=== PATIENT | male | born 1960 | race Two or more races ===

== ENCOUNTER 2019-01-31 09:58 | Inpatient (IN) | payer SELFPAY ==
[~2019-01-31] VITALS: Ht 167.6 cm; Wt 131.7 kg
[2019-01-31] MEDS ORDERED: ONDANSETRON HCL 4 MG/2 ML VIAL ONE (10:34)
[2019-01-31] MEDS ORDERED: MORPHINE SULFATE 4 MG/ML SYR/VIAL ONE (10:34)
[2019-01-31 10:42] LABS: Basophils # (auto) 0 uL; Basophils % (auto) 0.3 % (0.0-2.0); Eosinophils # (auto) 0.3 uL; Eosinophils % (auto) 2.3 % (0.0-7.0); Hematocrit 44.2 % (41.0-53.0); Hemoglobin 14.5 g/dL (13.5-17.5); Lymphocytes # (auto) 3.8 uL; Lymphocytes % (auto) 28.3 % (10.0-50.0); Mean Corpuscular Hemoglobin 28.7 pg (28.0-32.0); Mean Corpuscular Hgb Conc. 32.9 g/dL (32.0-36.0); Mean Corpuscular Volume 87.1 fL (80.0-100.0); Monocytes % (auto) 7.9 % (0.0-12.0); Neutrophils # (auto) 8.2 uL; Neutrophils % (auto) 61.2 % (37.0-80.0); Nucleated Red Blood Cells % 0.1 %; Platelet Count (auto) 171 10^3/uL (140-450); Red Blood Cells 5.07 10^6/uL (4.5-5.90); Red Cell Distribution Width 14.5 % (11.8-14.3); White Blood Cell 13.4 10^3/uL (4.4-10.8)
[2019-01-31] MEDS ORDERED: FUROSEMIDE 40 MG/4 ML VIAL IV ONE (10:45)
[2019-01-31 10:59] LABS: INR 1.01 (0.9-1.15); Partial Thromboplastin Time 26.5 sec (23.64-32.05)
[2019-01-31] MEDS ORDERED: KETOROLAC TROMETH 15 mg/ml 1ML VL IV ONE (11:00)
[2019-01-31 11:05] LABS: Albumin 3.9 g/dL (3.4-5.0); Anion Gap 14 (5-15); Blood Urea Nitrogen 17 mg/dL (7-18); Carbon Dioxide 17 mmol/L (21-32); Chloride 107 mmol/L (98-107); Glucose 244 mg/dL (74-106); Potassium 3.6 mmol/L (3.5-5.1); Sodium 138 mmol/L (136-145)
[2019-01-31 11:10] LABS: Alanine Aminotransferase 48 U/L (16-61); Alkaline Phosphatase 86 U/L (45-117); Aspartate Aminotransferase 30 U/L (15-37); BUN/Creatinine Ratio 10.8; Bilirubin, Total 1.4 mg/dL (0.2-1.0); GFR African American 58 mL/min; GFR Non-African American 48 mL/min; Total Protein 8.9 g/dL (6.4-8.2)
[2019-01-31] MEDS ORDERED: LORazepam 2MG/ML-1ML VIAL IV ONE (11:45)
[2019-01-31] MEDS ORDERED: ACETYLCYSTEINE ORAL for CIN 20%(200MG/ML) 4ML PO ONE (11:45)
[2019-01-31] MEDS ORDERED: IOHEXOL 350 MG/ML 100ML IJ ONE (11:48)
[2019-01-31] MEDS ORDERED: HEPARIN DRIP/D5W 100UNITS/ML 250 ML IV SCH (12:30)
[2019-01-31] MEDS ORDERED: HYDROmorphone HCL 2 MG/ML VL ONE (12:40)
[2019-01-31] MEDS ORDERED: PROMETHAZINE HCL 25 MG/ML 1ML ONE (12:40)
[2019-01-31] MEDS ORDERED: HYDROmorphone HCL 2 MG/ML VL IV ONE (12:45)
[2019-01-31] MEDS ORDERED: PROMETHAZINE HCL 25 MG/ML 1ML IV ONE (12:45)
[2019-01-31] MEDS ORDERED: NALOXONE HCL 0.4 MG/ML VIAL ONE (13:00)
[2019-01-31] MEDS ORDERED: MORPHINE SULFATE 4 MG/ML SYR/VIAL IV PRN (13:15)
[2019-01-31] MEDS ORDERED: NALOXONE HCL 0.4 MG/ML VIAL IV ONE (13:15)
[2019-01-31] MEDS ORDERED: LORazepam 0.5 MG TAB PO PRN (13:15)
[2019-01-31] MEDS ORDERED: DEXTROSE (50%) 50ML SYRG IV PRN (13:15)
[2019-01-31] MEDS ORDERED: traMADol HCL 50 MG TAB PO PRN (13:15)
[2019-01-31] MEDS ORDERED: ALBUTEROL SULF 2.5 MG/0.5ML(0.5%) NEB SOLN NEB PRN (13:15)
[2019-01-31] MEDS ORDERED: NITROGLYCERIN 0.4 MG SL TAB SL PRN (13:15)
[2019-01-31] MEDS ORDERED: PROMETHAZINE HCL 25 MG/ML 1ML IV PRN (13:15)
[2019-01-31] MEDS ORDERED: ACETAMINOPHEN 500 MG TAB PO PRN (13:15)
[2019-01-31] MEDS ORDERED: MORPHINE SULF INJ 2 MG/ML SYRINGE 1ML IV PRN (13:15)
[2019-01-31] MEDS: HEPARIN DRIP/D5W 100UNITS/ML 250 ML IV SCH (13:59)
[2019-01-31] MEDS: SODIUM CHLORIDE 0.9% 1,000 ML IV SCH ×2 (14:06→23:26)
[2019-01-31] MEDS: InsuLIN REG 1unit/0.01ml Soln (100units/ml) SC SCH ×2 (16:00→20:00)
[2019-01-31] MEDS: ACCU-CHEK COMFORT CURVE STRIP VI SCH ×2 (16:58→20:00)
[2019-01-31 17:30] VITALS: BP 123/88
--- NOTE | 2019-01-31 18:00 | NUR ---
Received patient from ER. Patient A&Ox4. Patient on the monitor. VS WNL. Patient on 2L NC. IV right IJ triple lumen running NS at 100ml/hr and Heparin drip at 10ml/hr and left AC 20G saline locked, both IV's patent, clean, dry, and intact. Patient sitting up in bed and able to swallow. Admission packet done. Report to be given to mine shifter RN. Will continue to monitor.
--- NOTE | 2019-01-31 18:14 | NUR ---
Respiratory note: ASSESSMENT FOR PRN MED NEB TX. HE 96, SPO2 90% ON ROOM AIR, RR 16, BS DIMINISHED. PT PRESENTING NO RESPIRATORY DISTRESS AT THIS TIME. WILL CONTINUE TO MONITOR.
[2019-01-31 19:26] VITALS: BP 142/98
[2019-01-31 20:00] VITALS: BP 123/88
[2019-01-31 20:22] LABS: INR 1.06 (0.9-1.15); Partial Thromboplastin Time 37.7 sec (23.64-32.05)
--- NOTE | 2019-01-31 22:30 | NUR ---
Heparin adjusted to 1200units per protocol. PTT 37.7. Will continue to monitor. Pt resting at this time.
[2019-02-01] VITALS: BP 149/106
--- NOTE | 2019-02-01 02:12 | NUR ---
Lab at bedside for PTT draw. Central line access, pulls and flushes with ease. Pt alert and asking multiple questions about condition and procedures. Pt oriented. Denies pain at this time. States feels much better than when he came in and can move ankle whereas when he came in he had no movement. Pt had jello and seems in good spirits but seems anxious. Will continue to monitor.
[2019-02-01 02:53] LABS: INR 1.03 (0.9-1.15)
--- NOTE | 2019-02-01 03:39 | NUR ---
PTT 44.0, Heparin increased by 200units, now running at 1400 units. Pt resting with eyes closed, stable.
[2019-02-01] MEDS: InsuLIN REG 1unit/0.01ml Soln (100units/ml) SC SCH ×6 (04:00→20:00)
[2019-02-01] MEDS: ACCU-CHEK COMFORT CURVE STRIP VI SCH ×6 (05:36→20:00)
[2019-02-01 06:00] VITALS: BP 114/70
[2019-02-01 06:04] LABS: Basophils # (auto) 0 uL; Basophils % (auto) 0.3 % (0.0-2.0); Eosinophils # (auto) 0.2 uL; Eosinophils % (auto) 1.7 % (0.0-7.0); Hematocrit 42.1 % (41.0-53.0); Hemoglobin 13.9 g/dL (13.5-17.5); Lymphocytes # (auto) 2.7 uL; Lymphocytes % (auto) 29.7 % (10.0-50.0); Mean Corpuscular Hemoglobin 28.9 pg (28.0-32.0); Mean Corpuscular Volume 87.6 fL (80.0-100.0); Monocytes # (auto) 0.8 uL; Monocytes % (auto) 8.5 % (0.0-12.0); Neutrophils # (auto) 5.4 uL; Neutrophils % (auto) 59.8 % (37.0-80.0); Nucleated Red Blood Cells % 0.1 %; Platelet Count (auto) 125 10^3/uL (140-450); Red Blood Cells 4.81 10^6/uL (4.5-5.90); Red Cell Distribution Width 14.3 % (11.8-14.3)
[2019-02-01 06:18] LABS: Albumin 3.1 g/dL (3.4-5.0); Anion Gap 12 (5-15); Blood Urea Nitrogen 31 mg/dL (7-18); Calcium 7.9 mg/dL (8.5-10.1); Carbon Dioxide 22 mmol/L (21-32); Chloride 102 mmol/L (98-107); Glucose 129 mg/dL (74-106); Potassium 4.2 mmol/L (3.5-5.1); Sodium 136 mmol/L (136-145)
[2019-02-01 06:21] LABS: Alanine Aminotransferase 59 U/L (16-61); Aspartate Aminotransferase 179 U/L (15-37); GFR African American 33 mL/min; GFR Non-African American 27 mL/min
[2019-02-01 06:24] LABS: Alkaline Phosphatase 73 U/L (45-117); Total Protein 7.7 g/dL (6.4-8.2)
--- NOTE | 2019-02-01 06:27 | NUR ---
Respiratory note: PATIENT IS AWAKE AND IN NO RESPIRATORY DISTRESS. SPO2 97% ON 2L NC, HR72, RR 18, BS CLEAR T/O. PATIENT INFORMED TO HIT CALL BUTTON IF FEELING SOB OR WHEEZING. PRN MEDNEB TX NOT INDICATED AT THIS TIME.
[2019-02-01 06:41] LABS: Alcohol, Urine < 3.0 mg/dL (0-5); Amphetamine Screen, Urine NEGATIVE (NEGATIVE); Barbiturate Scree,Urine NEGATIVE (NEGATIVE); Benzodiazephine Screen, Urine NEGATIVE (NEGATIVE); Cannabinoid Screen, Urine NEGATIVE (NEGATIVE); Cocaine Screen, Urine NEGATIVE (NEGATIVE); Opiate Scree,Urine POSITIVE (NEGATIVE); Phencyclidine Screen, Urine NEGATIVE (NEGATIVE)
[2019-02-01 07:28] LABS: Urine Bacteria FEW /hpf (None Seen); Urine Blood 3+ /uL (Negative); Urine Hyaline Cast FEW /lpf (0 - 2); Urine Mucus FEW (None Seen); Urine WBC 31 /hpf (0 - 3)
[2019-02-01 08:00] VITALS: BP 118/68
--- NOTE | 2019-02-01 08:00 | NUR ---
Opening Shift Note Assumed care of patient, awake and alert. Patient A&Ox4. Patient on the monitor. Patient on 2L NC saturation at 95%. IV right IJ triple lumen running NS at 100ml/hr and Heparin at 14ml/hr, IV left AC 20G saline locked. Both IV's patent, clean, dry, and intact. No S/S of distress/SOB or pain. Bed locked and in the lowest position, side rails up x2, call light with in reach. Instructed on POC and to call for assist PRN. Will continue to monitor.
--- NOTE | 2019-02-01 08:15 | NUR ---
Heparin protocol: New APTT level 53.2 no change to drip, still running at 14ml/hr.
--- NOTE | 2019-02-01 08:45 | NUR ---
Patient sitting up in bed eating breakfast independently. Will continue to monitor.
[2019-02-01 09:04] LABS: INR 1.01 (0.9-1.15); Partial Thromboplastin Time 53.2 sec (23.64-32.05)
[2019-02-01] MEDS: SODIUM CHLORIDE 0.9% 1,000 ML IV SCH (09:21)
[2019-02-01] MEDS: HEPARIN DRIP/D5W 100UNITS/ML 250 ML IV SCH (09:22)
[2019-02-01] MEDS: PANTOPRAZOLE 40 MG TAB PO SCH (09:23)
--- NOTE | 2019-02-01 10:00 | NUR ---
Medication dosages, usages, and side effects explained to patient. Patient verbalized understanding. Will continue to monitor.
[2019-02-01 12:00] VITALS: BP 135/68
--- NOTE | 2019-02-01 12:30 | NUR ---
Patient sitting up in bed eating lunch independently. Will continue to monitor.
[2019-02-01] MEDS ORDERED: cefTRIAXone 1GM/50ML D5W 50 ML IV ONE (13:00)
--- NOTE | 2019-02-01 13:00 | NUR ---
Dr. Garcia at bedside.
--- NOTE | 2019-02-01 14:00 | NUR ---
Patient sitting up in bed watching TV. No S/S of pain/SOB or distress. Will continue to monitor.
--- NOTE | 2019-02-01 14:15 | NUR ---
Heparin protocol: New APTT level 54.5 no change to drip, still running at 14ml/hr.
--- NOTE | 2019-02-01 16:32 | NUR ---
Patient resting at this time. No S/S of pain/SOB or distress. Will continue to monitor.
--- NOTE | 2019-02-01 18:30 | NUR ---
End of shift note: Patient resting at this time. Patient A&Ox4. Patient on the monitor. Patient on 2L NC saturation at 96%. IV right IJ triple lumen running NS at 100ml/hr and Heparin at 14ml/hr, IV left AC 20G saline locked. Both IV's patent, clean, dry, and intact. No S/S of distress/SOB or pain. Bed locked and in the lowest position, side rails up x2, call light with in reach. Report to be given to operation shift supervisor RN. Will continue to monitor.
--- NOTE | 2019-02-01 18:42 | NUR ---
Respiratory note: ASSESSED PT FOR PRN TX. PT IS CURRENTLY ON 2 L/M NC: HR 76, RR 18, SPO2 96% WITH CLEAR/DIM BS. PT SHOWS NO S/S OF RESPIRATORY DISTRESS. MED NEB TX NOT INDICATED AT THIS TIME. WILL CONTINUE TO MONITOR.
--- NOTE | 2019-02-01 20:15 | NUR ---
Opening Shift Note Assumed care of patient, awake and alert. No S/S of distress/SOB on 2L NC. Denies pain but c/o lower extremity tightness. Bilateral lower extremities noted to be edematous, skin is tight and reddened ,warm to touch. Lungs clear to auscultation. Patient infusing heparin drip at 18ml/hr.See interventions for complete physical assessment. Patient made aware of tele downgrade and verbalized understanding.Instructed on POC and to call for assist PRN, will continue to monitor for changes closely. Addendum: 02/02/19 at 2121 by Keila Mosley RN correct date and time : 02/02/192014
--- NOTE | 2019-02-02 04:23 | NUR ---
Pt has remained stable this shift. No S/S of distress. Insulin held due to last night pt was 150's with no coverage and dropped into 120's. Continuing to monitor. Insulin held in case pt glucose drops too low. Will check 0400 accucheck to see if adjustment needs to be made. Educated pt on diet and taking better care of himself upon discharge. At this time his DM seems to be diet controlled. Pt's urine does look bat boy/girl and does not smell as strong. There have been 3 PTT draws in therapeutic range, now to be drawn daily. Pt is tolerating well. Will continue to monitor.
[2019-02-02] MEDS: HEPARIN DRIP/D5W 100UNITS/ML 250 ML IV SCH ×2 (04:39→20:46)
[2019-02-02] MEDS: InsuLIN REG 1unit/0.01ml Soln (100units/ml) SC SCH ×6 (07:00→23:24)
[2019-02-02] MEDS: ACCU-CHEK COMFORT CURVE STRIP VI SCH ×6 (07:00→23:24)
--- NOTE | 2019-02-02 07:25 | NUR ---
Respiratory note: PT. AWAKE, NO RESPIRATORY DISTRESS NOTED. SPO2 98%, HR 71, RR 20, BS CLEAR T/O. PRN NOT INDICATED AT THIS TIME. PT INFORMED TO PUSH CALL BUTTON IF SOB, INCREASED WOB, OR WHEEZING OCCURS. Addendum: 02/02/19 at 0755 by RT RENAE RT SPO2 98% ON 2 L NC
[2019-02-02 07:50] VITALS: BP 146/98
--- NOTE | 2019-02-02 07:50 | NUR ---
Opening Shift Note Assumed care of patient, awake and alert. No S/S of distress/SOB or pain. Instructed on POC and to call for assist PRN, will continue to monitor for changes Q1hr and PRN. Left leg more swollen than right, no complaining of pain, on heparin drip 1400 units/hr, no bleeding noted, will continue to monitor and care.
[2019-02-02] MEDS: cefTRIAXone 1GM/50ML D5W 50 ML IV SCH (08:27)
--- NOTE | 2019-02-02 08:45 | NUR ---
Patient sitting on the bed, having breakfast.
[2019-02-02] MEDS: PANTOPRAZOLE 40 MG TAB PO SCH (09:47)
[2019-02-02 09:55] LABS: INR 0.95 (0.9-1.15); Partial Thromboplastin Time 44.9 sec (23.64-32.05)
--- NOTE | 2019-02-02 10:30 | NUR ---
PTT 44.9, increase Heparin per protocol, Heparin 1600 unit/hr.
--- NOTE | 2019-02-02 10:45 | NUR ---
Dr. Garcia at the bedside, seen patient at this time, try Room air O2 saturation 95-96%, will continue to monitor and continue O2 NC 2 LPM at this time. Plan of care discussed with patient, received order to transfer to Tele. Patient made aware.
--- NOTE | 2019-02-02 11:14 | NUR ---
Per SS consult for limited resources. 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 Pt states he has two friends he stays with at times. Pt states he has a [place] ID and social security card in his bag and he has a w/c and cane in his car. Provided Pt with a variety of resources in the [place] area. Pt does not have insurance and Cam Tapia from [facility] will be seeing the Pt for Medical. Addendum: 02/02/19 at 1119 by RYAN FREEMAN Amended: Links added.
[2019-02-02 11:50] VITALS: BP 112/47
--- NOTE | 2019-02-02 13:57 | NUR ---
Patient sitting on the bed, watching TV, took off O2 NC off, refused to have O2 NC at this time, O2 saturation around 96-97%, will continue to monitor.
--- NOTE | 2019-02-02 14:50 | NUR ---
Patient okay with O2 NC at this time, continue O2 NC 2 LPM, O2 saturation 97-98%, no complaining SOB noted. still bed rest, called and talked to Dr. Garcia, received new orders, patient made aware.
[2019-02-02 16:00] VITALS: BP 123/72
--- NOTE | 2019-02-02 16:55 | NUR ---
Patient sitting on the bed, watching TV, patient made aware that still waiting for the bed. Will continue to monitor, plan check PTT at 5 pm.
[2019-02-02 17:59] LABS: INR 0.95 (0.9-1.15); Partial Thromboplastin Time 48.5 sec (23.64-32.05)
--- NOTE | 2019-02-02 18:09 | NUR ---
PTT 48.5, increased Heparin from 1600 units/hr to 1800 units/hr per protocol, will continue to monitor and care.
--- NOTE | 2019-02-02 18:33 | NUR ---
Dinner tray provided, patient sitting up on the bed. Vital sign stable, no complaining of SOB or bleeding noted.
[2019-02-02 19:49] VITALS: BP 138/72
--- NOTE | 2019-02-02 20:15 | NUR ---
Opening Shift Note Assumed care of patient, awake and alert. No S/S of distress/SOB on 2L NC. Denies pain but c/o lower extremity tightness. Bilateral lower extremities noted to be edematous, skin is tight and reddened ,warm to touch. Lungs clear to auscultation. Patient infusing heparin drip at 18ml/hr.See interventions for complete physical assessment. Patient made aware of tele downgrade and verbalized understanding.Instructed on POC and to call for assist PRN, will continue to monitor for changes closely.
--- NOTE | 2019-02-02 21:00 | NUR ---
PATIENT NOTED TO HAVE URINE INCONTINENCE. COMPLETE LINEN CHANGE DONE, PATIENT CLEANED. SKIN INTEGRITY ASSESSED, SACRUM INTACT. PATIENT TURNED AND REPOSITIONED IN BED FOR COMFORT.
--- NOTE | 2019-02-02 21:14 | NUR ---
CARE ENDORSED TO LAUREN LI
[2019-02-02] MEDS: DOCUSATE SOD 100 MG CAP PO SCH (21:30)
[2019-02-02 22:31] VITALS: BP 119/71
--- NOTE | 2019-02-02 22:31 | NUR ---
[facility] pt transferred to floor JULIO HODGE transfered to 208 via hospital bed on manager cardiac cath and portable 02. All patient medications and personal belongings transfered with patient to receiving floor. Patient care transfered to Eliane LI. NOTE: Fall and safety precautions in place. Call light within reach.
--- NOTE | 2019-02-02 23:00 | NUR ---
PT/PTT PTT lab draw was 60.4. Per Heparin protocol "no bolus, no change." Rate at 18ml/hr. Will continue to monitor
[2019-02-02 23:25] LABS: INR 0.94 (0.9-1.15); Partial Thromboplastin Time 60.4 sec (23.64-32.05)
[2019-02-03] VITALS (8 sets, daily range): BP systolic 91–157; BP diastolic 56–119
--- NOTE | 2019-02-03 00:50 | NUR ---
Respiratory note: PT SEEN AND ASSESSED FOR PRN MED NEB TX AT 0050. TX NOT INDICATED AT THIS TIME. PT DENIES ANY DISTRESS AT THIS TIME AND STATED THAT THIS IS THE BEST HE HAS BEEN BREATHING FOR A WHILE. BREATH SOUNDS WERE CLEAR AND DIMINISHED BILATERALLY. PT AWARE TO CALL FOR RT IF ANY DISTRESS OCCURS.
--- NOTE | 2019-02-03 05:00 | NUR ---
PT/PTT PTT drawn at this time and result was 64.1. Per Heparin protocol, "no bolus, no change." Heparin drip running at 18ml/hr. No distress noted. Will continue to monitor
[2019-02-03] MEDS: InsuLIN REG 1unit/0.01ml Soln (100units/ml) SC SCH ×4 (05:48→23:41)
[2019-02-03] MEDS: ACCU-CHEK COMFORT CURVE STRIP VI SCH ×4 (05:48→23:41)
--- NOTE | 2019-02-03 06:14 | NUR ---
Respiratory note: PT IS RESTING COMFORTABLY AND IN NO RESPIRATORY DISTRESS. SPO2 96% ON RA, HR 69, RR 16, BS CLEAR T/O. PRN MEDNEB TX NOT INDICATED AT THIS TIME. PT INFORMED IF SOB, INCREASED WOB, OR WHEEZING TO PUSH CALL BUTTON.
[2019-02-03 06:18] LABS: INR 0.95 (0.9-1.15); Partial Thromboplastin Time 64.1 sec (23.64-32.05)
--- NOTE | 2019-02-03 07:00 | NUR ---
CLOSING NOTE Endorsed care to Norris RN. Patient resting quietly in bed with eyes closed, even and nonlabored breathing. No distress noted.
--- NOTE | 2019-02-03 07:30 | NUR ---
OPENING NOTE The patient is received alert and oriented times four with no SOB or s/s of distress at this time. The patient is resting in bed in the lowest position with call light within reach, will continue to monitor and POC.
[2019-02-03] MEDS: cefTRIAXone 1GM/50ML D5W 50 ML IV SCH (09:01)
[2019-02-03] MEDS: DOCUSATE SOD 100 MG CAP PO SCH ×2 (09:01→21:14)
[2019-02-03] MEDS: PANTOPRAZOLE 40 MG TAB PO SCH (09:01)
--- NOTE | 2019-02-03 09:15 | NUR ---
HOSPITALIST BEDSIDE Dr. Garcia is bedside and updates the patient on the POC.
[2019-02-03 10:49] LABS: Albumin 3.1 g/dL (3.4-5.0); BUN/Creatinine Ratio 17.9; Potassium 3.6 mmol/L (3.5-5.1)
[2019-02-03 10:51] LABS: Basophils # (auto) 0 uL; Basophils % (auto) 0.4 % (0.0-2.0); Eosinophils # (auto) 0.3 uL; Eosinophils % (auto) 4.5 % (0.0-7.0); Hemoglobin 11.9 g/dL (13.5-17.5); Lymphocytes # (auto) 1.9 uL; Lymphocytes % (auto) 29.4 % (10.0-50.0); Mean Corpuscular Hemoglobin 28.5 pg (28.0-32.0); Mean Corpuscular Hgb Conc. 33.1 g/dL (32.0-36.0); Mean Corpuscular Volume 86.2 fL (80.0-100.0); Monocytes # (auto) 0.5 uL; Monocytes % (auto) 8.1 % (0.0-12.0); Neutrophils # (auto) 3.7 uL; Neutrophils % (auto) 57.6 % (37.0-80.0); Nucleated Red Blood Cells % 0.1 %; Platelet Count (auto) 136 10^3/uL (140-450); Red Blood Cells 4.17 10^6/uL (4.5-5.90); White Blood Cell 6.5 10^3/uL (4.4-10.8)
[2019-02-03 10:52] LABS: Bilirubin, Total 0.7 mg/dL (0.2-1.0); Total Protein 7.4 g/dL (6.4-8.2)
[2019-02-03 11:01] LABS: Calcium 8.3 mg/dL (8.5-10.1)
[2019-02-03] MEDS ORDERED: FUROSEMIDE 100 MG/10ML VIAL IV ONE (11:30)
[2019-02-03 11:45] LABS: INR 0.94 (0.9-1.15); Partial Thromboplastin Time 68.7 sec (23.64-32.05)
[2019-02-03] MEDS ORDERED: FUROSEMIDE 40 MG TAB PO ONE (12:00)
--- NOTE | 2019-02-03 12:30 | NUR ---
Rounds Patient awake and alert. No S/S of distress/SOB or pain. Will continue to monitor changes q1hr and PRN.
--- NOTE | 2019-02-03 12:36 | NUR ---
Nutrition Assessment Notes please see attached link for complete assessment Est. Needs ABW [id number] kcal (17-20 kcal/kgBW), 78-98 gms pro (0.8-1.0 gms/kgBW). Will continue to monitor pertinent labs and reassess nutrient need prn Addendum: 02/03/19 at [address] Amended: Links added.
[2019-02-03] MEDS ORDERED: OPTISON 3ml Vial for INJ IV ONE (16:09)
[2019-02-03 16:11] LABS: INR 0.93 (0.9-1.15); Partial Thromboplastin Time 63.8 sec (23.64-32.05)
[2019-02-03] MEDS ORDERED: WARFARIN SODIUM 10 MG TAB PO ONE (17:00)
--- NOTE | 2019-02-03 19:30 | NUR ---
Opening Shift Note Assumed care of patient, awake and alert. No S/S of distress/SOB or pain. Insructed on POC and to callfor assist PRN, will continue to monitor for changes Q1hr and PRN. Fall and safety precautions in place. Call light within reach.
--- NOTE | 2019-02-03 21:41 | NUR ---
TEMP Patient's temp at this time is 99.4 oral. Cooling measures applied and PRN medication given (see emar). Will recheck approximately 1hr.
--- NOTE | 2019-02-03 22:41 | NUR ---
TEMP Rechecked patient's temp; 98.4 oral. No distress noted. Will continue to monitor
--- NOTE | 2019-02-04 00:57 | NUR ---
Respiratory note: PT SEEN AND ASSESSED FOR PRN MED NEB TX AT 0057. TX NOT INDICATED AT THIS TIME. PT IS CURRENTLY SLEEPING SHOWING NO SIGNS OF RESPIRATORY DISTRESS. HR 77 RR 17 POX 93% ON ROOM AIR.
[2019-02-04] MEDS: HEPARIN DRIP/D5W 100UNITS/ML 250 ML IV SCH ×2 (01:59→15:09)
[2019-02-04 04:38] VITALS: BP 125/68
--- NOTE | 2019-02-04 05:00 | NUR ---
HEPARIN DRIP PTT drawn at this time; 63.4. Per Heparin drip protocol, "no bolus, no change." Heparin infusing at 18ml/hr. No distress noted. Will continue to monitor
[2019-02-04] MEDS: InsuLIN REG 1unit/0.01ml Soln (100units/ml) SC SCH ×3 (05:51→17:31)
[2019-02-04] MEDS: ACCU-CHEK COMFORT CURVE STRIP VI SCH ×4 (05:51→23:43)
[2019-02-04 06:08] LABS: Basophils # (auto) 0 uL; Basophils % (auto) 0.4 % (0.0-2.0); Eosinophils # (auto) 0.3 uL; Eosinophils % (auto) 4.8 % (0.0-7.0); Hematocrit 35.6 % (41.0-53.0); Hemoglobin 12.1 g/dL (13.5-17.5); Lymphocytes % (auto) 28.7 % (10.0-50.0); Mean Corpuscular Hemoglobin 29.3 pg (28.0-32.0); Mean Corpuscular Volume 86.4 fL (80.0-100.0); Monocytes # (auto) 0.6 uL; Monocytes % (auto) 8.6 % (0.0-12.0); Neutrophils % (auto) 57.5 % (37.0-80.0); Nucleated Red Blood Cells % 0.1 %; Platelet Count (auto) 156 10^3/uL (140-450); Red Blood Cells 4.12 10^6/uL (4.5-5.90); White Blood Cell 6.9 10^3/uL (4.4-10.8)
[2019-02-04 06:23] LABS: Anion Gap 12 (5-15); Calcium 8.2 mg/dL (8.5-10.1); Carbon Dioxide 26 mmol/L (21-32); Chloride 100 mmol/L (98-107); Glucose 127 mg/dL (74-106); Potassium 3.6 mmol/L (3.5-5.1); Sodium 138 mmol/L (136-145)
[2019-02-04 06:29] LABS: Blood Urea Nitrogen 17 mg/dL (7-18); GFR African American 85 mL/min; GFR Non-African American 70 mL/min
--- NOTE | 2019-02-04 07:30 | NUR ---
ASSESSED PT FOR MED NEB PRN TX. PT DENIES FEELING SOB AND NO DISTRESS NOTED. PT ON RA WITH SPO2 97%, HR 63, RR 16 WITH DIMINISHED BS. WILL CONTINUE TO MONITOR PT.
--- NOTE | 2019-02-04 07:30 | NUR ---
CLOSING NOTE Endorsed care to Antonia LI. Informed her Heparin drip infusing at 18ml/hr. Patient resting quietly in bed, eyes closed, even and nonlabored breathing.
--- NOTE | 2019-02-04 07:53 | NUR ---
OPENING SHIFT NOTE ASSUMED CARE OF PATIENT. PATIENT AWAKE AND ALERT SITTING UP IN BED. NO S/S OF DISTRESS OR SOB NOTED. REVIEWED POC AND INSTRUCTED TO CALL FOR ASSIST NEEDED. HEPARIN NOTED AT 18MLS PER HOUR. PATIENT AWARE OF S/S OF BLEEDING AND TO NOTIFY STAFF OF ANY S/S. BED IN LOWEST LOCKED POSITION, CALL LIGHT WITHIN REACH. WILL CONTINUE TO MONITOR.
[2019-02-04] MEDS ORDERED: FUROSEMIDE 20 MG TAB PO ONE (08:30)
[2019-02-04 08:47] VITALS: BP 138/71
--- NOTE | 2019-02-04 09:15 | NUR ---
AT BEDSIDE DR Chacho NIETO AT BEDSIDE AT THIS TIME. NEW ORDERS RECEIVED FOR COUMADIN. CONTINUING TO MONITOR.
[2019-02-04] MEDS: cefTRIAXone 1GM/50ML D5W 50 ML IV SCH (10:06)
[2019-02-04] MEDS: PANTOPRAZOLE 40 MG TAB PO SCH (10:06)
[2019-02-04] MEDS: DOCUSATE SOD 100 MG CAP PO SCH ×2 (10:06→21:39)
[2019-02-04 10:21] LABS: INR 0.96 (0.9-1.15)
[2019-02-04 13:00] VITALS: BP 128/72
--- NOTE | 2019-02-04 13:30 | NUR ---
BLOOD CULTURE RECEIVED FROM KATHY LI + BLOOD CULTURE NOTIFICATION CALLED FROM [facility]. WILL CALL MD TO NOTIFY.
--- NOTE | 2019-02-04 15:08 | NUR ---
ASSESSED PT FOR PRN MED NEB BREATHING TX, PT ON RA WITH A SPO2 97%, HR 63, RR 16. NO SOB NOTED NO RESPIRATORY DISTRESS NOTED. PT SAYS HE FEELS GOOD AND NO MED NEB TX NEEDED. WILL CONTINUE TO MONITOR.
--- NOTE | 2019-02-04 15:10 | NUR ---
HEPARIN HEPARIN DRIP ALMOST COMPLETELY EMPTY. NEW BAG RECEIVED FROM PHARMACY. WITH SECONDARY RN CO SIGNATURE NEW HEPARIN BAG STARTED AT 18MLS/HR OR 1800U/HR. PATIENT TOLERATING WELL, REINSTRUCTED PATIENT TO CALL WITH ANY S/S OF BLEEDING, PATIENT VERBALIZED UNDERSTANDING. PATIENT SHOWS NO S/S OF DISTRESS OR SOB NOTED. CALL LIGHT WITHIN REACH. CONTINUING TO MONITOR.
--- NOTE | 2019-02-04 15:59 | NUR ---
MD NOTIFIED MD NOTIFIED REGARDING REPORT FROM ECHOCARDIOGRAM TO BE READ BY DR LARIOS PER ELECTRICAL FOREMAN. ALSO NOTIFIED AT THIS TIME OF POSITIVE BLOOD CULTURE. NO NEW ORDERS RECEIVED AT THIS TIME. CONTINUING TO MONITOR.
[2019-02-04 17:00] VITALS: BP 129/77
[2019-02-04] MEDS ORDERED: WARFARIN SODIUM 5 MG TAB PO ONE (17:00)
[2019-02-04] MEDS ORDERED: WARFARIN SODIUM 10 MG TAB PO ONE (17:00)
--- NOTE | 2019-02-04 19:10 | NUR ---
opening notes Assumed care, awake and oriented with no signs of distress and no c/o pain. Right subclavian TLC infusing heparin drip @ 18ml/hr, respirations even and unlabored on room air, SPO2 97%, bilateral pitting edema note. Bed in lowest position with side rails up, bed alarm on and call light within reach. Will continue care.
--- NOTE | 2019-02-04 19:36 | NUR ---
END OF SHIFT NOTE PATIENT RESTING COMFORTABLY IN BED AT THIS TIME. NO S/S OF DISTRESS OR SOB NOTED. HEPARIN NOTED TO BE CONTINUED AT 18MLS OR 1800UNITS/HR. BED IN LOWEST LOCKED POSITION, CALL LIGHT WITHIN REACH. CARE ENDORSED TO GUILLERMO JETER.
--- NOTE | 2019-02-04 19:45 | NUR ---
RT NOTE: PT ASSESSED FOR PRN TX @ THIS TIME. PRN TX NOT INDICATED. HR 72, SPO2 95% ON ROOM AIR, DIMINISHED BS AUSCULTATED T/O. NO SOB OR DISTRESS NOTED. PT AWARE OF PRN BREATHING TX.
[2019-02-04 21:30] VITALS: BP 132/73
--- NOTE | 2019-02-04 23:00 | NUR ---
Elimination Had large amount of formed, brown stool in the commode, cleaned and assisted back to bed.
[2019-02-05] MEDS: HEPARIN DRIP/D5W 100UNITS/ML 250 ML IV SCH ×2 (02:58→17:55)
[2019-02-05 05:00] VITALS: BP 127/68
--- NOTE | 2019-02-05 05:00 | NUR ---
APTT 55.2, HEPARIN DRIP KEPT @ 18ML/HR PER PROTOCOL, NO CHANGES MADE WITH TITRATION.
[2019-02-05 05:27] LABS: Basophils # (auto) 0 uL; Basophils % (auto) 0.2 % (0.0-2.0); Eosinophils # (auto) 0.4 uL; Eosinophils % (auto) 4.6 % (0.0-7.0); Hematocrit 36.1 % (41.0-53.0); Lymphocytes # (auto) 1.8 uL; Lymphocytes % (auto) 23.3 % (10.0-50.0); Mean Corpuscular Hemoglobin 29.1 pg (28.0-32.0); Mean Corpuscular Hgb Conc. 33.3 g/dL (32.0-36.0); Mean Corpuscular Volume 87.4 fL (80.0-100.0); Monocytes # (auto) 0.6 uL; Monocytes % (auto) 8.4 % (0.0-12.0); Neutrophils # (auto) 4.9 uL; Neutrophils % (auto) 63.5 % (37.0-80.0); Nucleated Red Blood Cells % 0.1 %; Platelet Count (auto) 170 10^3/uL (140-450); Red Blood Cells 4.13 10^6/uL (4.5-5.90); Red Cell Distribution Width 14.3 % (11.8-14.3); White Blood Cell 7.7 10^3/uL (4.4-10.8)
[2019-02-05 05:49] LABS: Anion Gap 10 (5-15); BUN/Creatinine Ratio 14.7; Blood Urea Nitrogen 15 mg/dL (7-18); Calcium 8.5 mg/dL (8.5-10.1); Carbon Dioxide 26 mmol/L (21-32); Chloride 104 mmol/L (98-107); GFR African American 96 mL/min; GFR Non-African American 79 mL/min; Glucose 123 mg/dL (74-106); Sodium 140 mmol/L (136-145)
[2019-02-05 05:52] LABS: INR 1.07 (0.9-1.15); Partial Thromboplastin Time 55.2 sec (23.64-32.05)
[2019-02-05] MEDS: ACCU-CHEK COMFORT CURVE STRIP VI SCH ×3 (06:26→17:57)
[2019-02-05] MEDS: InsuLIN REG 1unit/0.01ml Soln (100units/ml) SC SCH ×4 (06:27→17:57)
--- NOTE | 2019-02-05 07:55 | NUR ---
OPENING SHIFT NOTE ASSUMED CARE OF PATIENT. PATIENT AWAKE AND ALERT SITTING UP IN BED. NO S/S OF DISTRESS OR SOB NOTED. REVIEWED POC WITH PATIENT AND INSTRUCTED TO CALL FOR ASSIST NEEDED. HEPARIN DRIP NOTED TO BE RUNNING AT 18MLS OR 1800U/HR. PATIENT TOLERATING WELL. BED IN LOWEST LOCKED POSITION, CALL LIGHT WITHIN REACH. WILL CONTINUE TO MONITOR.
[2019-02-05 08:53] VITALS: BP 143/84
[2019-02-05] MEDS: PANTOPRAZOLE 40 MG TAB PO SCH (10:43)
[2019-02-05] MEDS: DOCUSATE SOD 100 MG CAP PO SCH ×2 (10:44→21:41)
[2019-02-05] MEDS: cefTRIAXone 1GM/50ML D5W 50 ML IV SCH (10:45)
[2019-02-05 13:00] VITALS: BP 109/69
[2019-02-05] MEDS ORDERED: WARFARIN SODIUM 2 MG TAB PO ONE (17:00)
[2019-02-05 17:08] VITALS: BP 140/84
--- NOTE | 2019-02-05 18:49 | NUR ---
END OF SHIFT NOTE PATIENT AWAKE AND ALERT SITTING UP IN BED. NO S/S OF DISTRESS OR SOB NOTED. HEPARIN CURRENTLY RUNNING AT 18MLS/HR. BED IN LOWEST LOCKED POSITION, CALL LIGHT WITHIN REACH. WILL ENDORSE CARE TO NOC RN.
[2019-02-05 22:00] VITALS: BP 122/76
--- NOTE | 2019-02-05 22:16 | NUR ---
Respiratory note: ASSESSED PT FOR PRN MED NEB AT THIS TIME, PT DENIES SOB AT THIS TIME, NO RESP DISTRESS NOTED, NO TX INDICATED, PULSE OX 97% ON RA, HR 67, RR 18, BILATERAL BS CLEAR.
[2019-02-06] MEDS: ACCU-CHEK COMFORT CURVE STRIP VI SCH ×4 (00:02→18:00)
--- NOTE | 2019-02-06 00:03 | NUR ---
Pt just drank a cup of apple juice and ate a cup of Bj. Blood sugar at 133mg/dl. Pt refused coverage at this time.
[2019-02-06 01:09] VITALS: BP 122/76
[2019-02-06 05:00] VITALS: BP 127/82
[2019-02-06 05:35] LABS: Basophils # (auto) 0 uL; Basophils % (auto) 0.3 % (0.0-2.0); Eosinophils # (auto) 0.4 uL; Eosinophils % (auto) 5.8 % (0.0-7.0); Hematocrit 36.2 % (41.0-53.0); Hemoglobin 12.4 g/dL (13.5-17.5); Lymphocytes # (auto) 1.9 uL; Lymphocytes % (auto) 26.6 % (10.0-50.0); Mean Corpuscular Hemoglobin 29.7 pg (28.0-32.0); Mean Corpuscular Hgb Conc. 34.2 g/dL (32.0-36.0); Mean Corpuscular Volume 86.7 fL (80.0-100.0); Monocytes # (auto) 0.6 uL; Neutrophils # (auto) 4.2 uL; Neutrophils % (auto) 58.3 % (37.0-80.0); Nucleated Red Blood Cells % 0.1 %; Platelet Count (auto) 189 10^3/uL (140-450); Red Blood Cells 4.18 10^6/uL (4.5-5.90); Red Cell Distribution Width 13.9 % (11.8-14.3); White Blood Cell 7.2 10^3/uL (4.4-10.8)
[2019-02-06 05:41] LABS: Anion Gap 7 (5-15); BUN/Creatinine Ratio 13.5; Blood Urea Nitrogen 14 mg/dL (7-18); Calcium 8.7 mg/dL (8.5-10.1); Carbon Dioxide 28 mmol/L (21-32); Chloride 106 mmol/L (98-107); GFR African American 94 mL/min; GFR Non-African American 77 mL/min; Glucose 121 mg/dL (74-106); Potassium 4.2 mmol/L (3.5-5.1); Sodium 141 mmol/L (136-145)
[2019-02-06 05:48] LABS: INR 1.32 (0.9-1.15); Partial Thromboplastin Time 69.3 sec (23.64-32.05)
[2019-02-06] MEDS: InsuLIN REG 1unit/0.01ml Soln (100units/ml) SC SCH ×4 (06:00→18:00)
--- NOTE | 2019-02-06 07:30 | NUR ---
Opening Shift Note Assuming care of patient at this time. Patient is awake and alert. Bed is locked and lowered with side rails up x2. Patient denies pain and shows no signs of shortness of breath. Instructed patient on the plan of care and to call for assistance as needed. Call light within reach. Will continue to round hourly and as needed.
[2019-02-06] MEDS ORDERED: FUROSEMIDE 20 MG TAB PO ONE (08:15)
[2019-02-06] MEDS: HEPARIN DRIP/D5W 100UNITS/ML 250 ML IV SCH (08:28)
--- NOTE | 2019-02-06 08:45 | NUR ---
Respiratory note: PT ASSESSED FOR PRN MED NEB TX. TX IS NOT INDICATED AT THIS TIME. POX 95% ON RA, HR 65, RR 12. B/S ARE CLEAR THROUGHOUT. PT IS AWARE TO PRESS THE CALL LIGHT IF HE FEELS ANY SOB TO RECEIVE A MED NEB TX.
[2019-02-06 09:00] VITALS: BP 130/82
[2019-02-06] MEDS: DOCUSATE SOD 100 MG CAP PO SCH (10:41)
[2019-02-06] MEDS: PANTOPRAZOLE 40 MG TAB PO SCH (10:42)
[2019-02-06] MEDS: cefTRIAXone 1GM/50ML D5W 50 ML IV SCH (10:43)
[2019-02-06 11:12] VITALS: BP 130/82
[2019-02-06 13:14] VITALS: BP 147/88
--- NOTE | 2019-02-06 16:00 | NUR ---
Discharge instructions given as ordered. Encourage to follow up with PMD as instructed. All questions and concerns addressed. Patient verbalized understanding. IV removed with catheter intact, pressure dressing applied. Telemetry unit returned to [facility]. Patient taken to vehicle via wheelchair with all personal belongings, accompanied by staff. [facility]. No distress noted at time of departure. Patient given information to coumadin clinic.
[2019-02-06] MEDS ORDERED: WARFARIN SODIUM 2.5 MG TAB PO ONE (17:00)
--- NOTE | 2019-02-06 17:47 | NUR ---
Respiratory note: PT IN NO NEED OF SVN AT THIS TIME. PT IS IN NO DISTRESS. BREATH SOUNDS ARE CLEAR TO DIM BILATERALLY. PT KNOWS TO CALL NURSE IF SOB OCCURS.
[2019-02-07] MEDS ORDERED: WARF6TAB21 PO (18:43)
[2019-02-07] MEDS ORDERED: LISI-646 PO (18:43)
[2019-02-07] MEDS ORDERED: METF-371 PO (18:43)
[2019-02-07] MEDS ORDERED: FURO20TA PO (18:43)
[2019-02-09] MEDS ORDERED: MORPHINE SULFATE 4 MG/ML SYR/VIAL IV ONE (12:00)
== END 2019-02-06 16:00 | disposition home or self-care (01) | DRG 871 ==
LOC: ER 09:58 → OVERFLOW 09:59 → DOU IN ICU 18:03 → TELE-CENTR 02-02 22:26
PROVIDERS: ADMIT Internal Medicine; ATTEND Family Medicine
PROC: 02HV33Z Insertion of Infusion Device into Superior Vena Cava, Percutaneous Approach (ICD-10-PCS; principal; 2019-01-31)
DX: A41.9 Sepsis, unspecified organism (principal); I26.99 Other pulmonary embolism without acute cor pulmonale; N17.9 Acute kidney failure, unspecified; N39.0 Urinary tract infection, site not specified; I82.403 Acute embolism and thrombosis of unspecified deep veins of lower extremity, bilateral; Z68.42 Body mass index [BMI] 45.0-49.9, adult; F12.90 Cannabis use, unspecified, uncomplicated; E66.01 Morbid (severe) obesity due to excess calories; D72.829 Elevated white blood cell count, unspecified; E11.65 Type 2 diabetes mellitus with hyperglycemia; R80.9 Proteinuria, unspecified; I50.9 Heart failure, unspecified; E86.0 Dehydration; F19.10 Other psychoactive substance abuse, uncomplicated; Z79.01 Long term (current) use of anticoagulants; Z82.49 Family history of ischemic heart disease and other diseases of the circulatory system; Z86.711 Personal history of pulmonary embolism
CPT/HCPCS: 36415; 71045; 71275; 76775; 80048; 80053; 80307; 81001; 81241; 82962; 83036; 83880; 84484; 85025; 85302; 85305; 85306; 85610; 85613; 85670; 85705; 85730; 85732; 87040; 87076; 87086; 93005; 93306; 93970; G0378; J0696; J1642; J1815; J2405; Q9956

== ENCOUNTER 2019-04-15 08:19 | Inpatient (IN) | payer MEDICAID ==
[~2019-04-15] VITALS: Ht 172.7 cm; Wt 112.7 kg
[~2019-04-15 08:19] MED LIST: FURO1TAB33 PO; LISI-646 PO; METF-371 PO; POTA-220 PO; WARF6TAB21 PO
[2019-04-15 09:02] LABS: Basophils # (auto) 0 uL; Basophils % (auto) 0.9 % (0.0-2.0); Eosinophils # (auto) 0.3 uL; Eosinophils % (auto) 5.8 % (0.0-7.0); Hematocrit 39.7 % (41.0-53.0); Hemoglobin 13.1 g/dL (13.5-17.5); Lymphocytes # (auto) 1.3 uL; Mean Corpuscular Hemoglobin 28.6 pg (28.0-32.0); Mean Corpuscular Hgb Conc. 33.1 g/dL (32.0-36.0); Mean Corpuscular Volume 86.3 fL (80.0-100.0); Monocytes # (auto) 0.4 uL; Monocytes % (auto) 9.4 % (0.0-12.0); Neutrophils # (auto) 2.4 uL; Neutrophils % (auto) 53.9 % (37.0-80.0); Nucleated Red Blood Cells % 0.1 %; Platelet Count (auto) 209 10^3/uL (140-450); Red Cell Distribution Width 14.8 % (11.8-14.3); White Blood Cell 4.5 10^3/uL (4.4-10.8)
[2019-04-15 09:19] LABS: Albumin 3.7 g/dL (3.4-5.0); BUN/Creatinine Ratio 13.6; Calcium 8.6 mg/dL (8.5-10.1); Potassium 3.6 mmol/L (3.5-5.1)
[2019-04-15 09:22] LABS: Bilirubin, Total 0.7 mg/dL (0.2-1.0); Total Protein 8.1 g/dL (6.4-8.2)
[2019-04-15 09:27] LABS: INR 0.96 (0.9-1.15); Partial Thromboplastin Time 29.1 sec (23.64-32.05)
[2019-04-15] MEDS ORDERED: IOHEXOL 350 MG/ML 100ML IJ ONE ×2 (09:55→11:00)
[2019-04-15] MEDS ORDERED: ENOXAPARIN SOD 100 MG/1 ML SYRINGE SC ONE (10:00)
[2019-04-15] MEDS ORDERED: MORPHINE SULF INJ 2 MG/ML SYRINGE 1ML IV PRN ×2 (11:15)
[2019-04-15] MEDS ORDERED: NITROGLYCERIN 0.4 MG SL TAB SL PRN (11:15)
[2019-04-15] MEDS ORDERED: ONDANSETRON HCL 4 MG/2 ML VIAL IV PRN (11:15)
[2019-04-15] MEDS ORDERED: ACETAMINOPHEN 500 MG TAB PO PRN (11:15)
[2019-04-15] MEDS ORDERED: LISINOPRIL 20 MG TAB PO ONE (11:30)
[2019-04-15] MEDS ORDERED: FUROSEMIDE 20 MG TAB PO ONE (11:30)
[2019-04-15] MEDS ORDERED: ENOXAPARIN SOD 120 MG/0.8 ML SYRINGE SC ONE (11:30)
[2019-04-15] MEDS ORDERED: FAMOTIDINE 20 MG TAB PO ONE (11:30)
[2019-04-15] MEDS ORDERED: POTASSIUM CHL 20 Meq TABLET PO ONE (11:30)
[2019-04-15] MEDS ORDERED: PANTOPRAZOLE 40 MG TAB PO ONE (11:30)
[2019-04-15] MEDS ORDERED: DEXTROSE (50%) 50ML SYRG IV PRN (11:30)
[2019-04-15] MEDS: ACCU-CHEK COMFORT CURVE STRIP VI SCH ×3 (12:35→21:31)
[2019-04-15] MEDS: InsuLIN REG 1unit/0.01ml Soln (100units/ml) SC SCH ×3 (12:36→21:31)
[2019-04-15 13:00] VITALS: BP 153/86
--- NOTE | 2019-04-15 13:30 | NUR ---
Telemetry admit from ER APOLONIA HODGE admitted to Telemetry unit, NO report received. Patient found in room sitting in bed. Patient oriented to Dulce Maria Zuniga, primary RN, unit, room, bed, and unit policies regarding patient care and visiting hours. Patient now on continuous telemetry monitoring, tele box #64 and telemetry reading on arrival to unit is sinus sari 58 bpm. Patient encouraged to call if they need something. All questions and concerns addressed, patient verbalized understanding. Bed locked in the lowest position. Bed rails up x2. Call light in reach.
[2019-04-15] MEDS: HYDROcodone-ACET 5/325MG TAB PO PRN (16:42)
[2019-04-15 16:57] VITALS: BP 141/99
[2019-04-15] MEDS ORDERED: WARFARIN SODIUM 5 MG TAB PO ONE (17:00)
--- NOTE | 2019-04-15 17:00 | NUR ---
URINE SAMPLE PATIENT EDUCATED ON NEED FOR URINE SAMPLE. PATIENT VERBALIZED UNDERSTANDING. SPECIMEN CUP AT THE BEDSIDE.
--- NOTE | 2019-04-15 18:46 | NUR ---
CLOSING NOTE Patient is awake and alert. No S/S of distress/SOB or pain. Bed locked in the lowest position. Bed rails up x2. Call light in reach. Will endorse care to night RN.
--- NOTE | 2019-04-15 19:10 | NUR ---
Opening Shift Note Received report from GUILLERMO العراقي and assumed care of patient, awake and alert. Swelling noted on bilateral lower ext. Patient c/o throbbing pain in his R lower ext ,pain scale 9/10. Will medicate patient for pain. Instructed patient to call for assist if needed and patient verbalized understanding. Will continue to monitor .
[2019-04-15] MEDS: DOCUSATE SOD 100 MG CAP PO PRN (21:25)
[2019-04-15] MEDS: ENOXAPARIN SOD 120 MG/0.8 ML SYRINGE SC SCH (21:54)
[2019-04-15 22:00] VITALS: BP 116/83
[2019-04-15 22:45] LABS: Urine Bacteria NONE SEEN /hpf (None Seen); Urine Blood Negative /uL (Negative); Urine Specific Gravity 1.019 (1.001-1.035); Urine WBC 1 /hpf (0 - 3)
[2019-04-15 23:01] LABS: Amphetamine Screen, Urine NEGATIVE (NEGATIVE); Barbiturate Scree,Urine NEGATIVE (NEGATIVE); Benzodiazephine Screen, Urine NEGATIVE (NEGATIVE); Cannabinoid Screen, Urine NEGATIVE (NEGATIVE); Cocaine Screen, Urine NEGATIVE (NEGATIVE); Opiate Scree,Urine NEGATIVE (NEGATIVE); Phencyclidine Screen, Urine NEGATIVE (NEGATIVE)
[2019-04-16 05:00] VITALS: BP 111/71
[2019-04-16 06:26] LABS: Partial Thromboplastin Time 37.2 sec (23.64-32.05)
[2019-04-16] MEDS: HYDROcodone-ACET 5/325MG TAB PO PRN ×2 (06:32→12:29)
[2019-04-16] MEDS: ACCU-CHEK COMFORT CURVE STRIP VI SCH ×2 (06:33→11:18)
[2019-04-16] MEDS: InsuLIN REG 1unit/0.01ml Soln (100units/ml) SC SCH ×2 (06:33→11:18)
--- NOTE | 2019-04-16 08:00 | NUR ---
PT RESTING IN BED, PT REPORTS 10/10 PAIN IN RIGHT LEG. PRN PAIN MEDICATION ALREADY GIVEN. SIDE RAILS UP X 2, BED IN LOWEST LOCKED POSITION, CALL LIGHT IN REACH. WILL CONTINUE TO MONITOR.
[2019-04-16 08:19] VITALS: BP 114/70
[2019-04-16] MEDS: POTASSIUM CHL 20 Meq TABLET PO SCH (09:48)
[2019-04-16] MEDS: FAMOTIDINE 20 MG TAB PO SCH (09:49)
[2019-04-16] MEDS: FUROSEMIDE 20 MG TAB PO SCH (09:49)
[2019-04-16] MEDS: LISINOPRIL 20 MG TAB PO SCH (09:50)
[2019-04-16] MEDS: PANTOPRAZOLE 40 MG TAB PO SCH (09:50)
[2019-04-16] MEDS: ENOXAPARIN SOD 120 MG/0.8 ML SYRINGE SC SCH ×2 (09:51→20:46)
[2019-04-16 13:00] VITALS: BP 139/84
[2019-04-16 16:38] VITALS: BP 134/74
[2019-04-16] MEDS ORDERED: WARFARIN SODIUM 5 MG TAB PO ONE (17:00)
[2019-04-16 22:00] VITALS: BP 118/71
[2019-04-17 05:00] VITALS: BP 144/81
[2019-04-17 07:09] LABS: Basophils # (auto) 0 uL; Basophils % (auto) 0.5 % (0.0-2.0); Eosinophils # (auto) 0.3 uL; Eosinophils % (auto) 5.5 % (0.0-7.0); Hematocrit 38.9 % (41.0-53.0); Hemoglobin 12.8 g/dL (13.5-17.5); Lymphocytes # (auto) 1.4 uL; Lymphocytes % (auto) 30.2 % (10.0-50.0); Mean Corpuscular Hemoglobin 28.2 pg (28.0-32.0); Mean Corpuscular Hgb Conc. 32.9 g/dL (32.0-36.0); Mean Corpuscular Volume 85.5 fL (80.0-100.0); Monocytes # (auto) 0.4 uL; Monocytes % (auto) 9.1 % (0.0-12.0); Neutrophils # (auto) 2.5 uL; Neutrophils % (auto) 54.7 % (37.0-80.0); Nucleated Red Blood Cells % 0.2 %; Platelet Count (auto) 212 10^3/uL (140-450); Red Blood Cells 4.55 10^6/uL (4.5-5.90); Red Cell Distribution Width 14.9 % (11.8-14.3); White Blood Cell 4.6 10^3/uL (4.4-10.8)
[2019-04-17 07:26] LABS: INR 1.01 (0.9-1.15)
[2019-04-17 08:00] VITALS: BP 111/59
[2019-04-17] MEDS: FAMOTIDINE 20 MG TAB PO SCH (10:25)
[2019-04-17] MEDS: POTASSIUM CHL 20 Meq TABLET PO SCH (10:25)
[2019-04-17] MEDS: LISINOPRIL 20 MG TAB PO SCH (10:26)
[2019-04-17] MEDS: ENOXAPARIN SOD 120 MG/0.8 ML SYRINGE SC SCH ×2 (10:27→20:35)
[2019-04-17] MEDS: PANTOPRAZOLE 40 MG TAB PO SCH (10:27)
[2019-04-17] MEDS: FUROSEMIDE 20 MG TAB PO SCH (10:27)
[2019-04-17 13:00] VITALS: BP 123/82
--- NOTE | 2019-04-17 14:41 | NUR ---
NUTRITION ASSESSMENT NOTES Please refer to link notes of nutrition screen form filed under the intervention section of the plan of care for further details. Est. Needs: 1700 kcal to 2250 kcal (15-20 kcal/kgBW), 70 gms to 84 gms pro (1.0-1.2 gms/kgBW). Will continue to monitor pertinent labs and reassess nutrient need prn Thank you. Addendum: 04/17/19 at [address] Amended: Links added.
--- NOTE | 2019-04-17 16:27 | NUR ---
ENDORSED CARE TO MISHEL LI
--- NOTE | 2019-04-17 16:30 | NUR ---
Received a report from Reny LI.
[2019-04-17 16:54] VITALS: BP 122/82
[2019-04-17] MEDS ORDERED: WARFARIN SODIUM 10 MG TAB PO ONE (17:00)
[2019-04-17] MEDS: DOCUSATE SOD 100 MG CAP PO PRN (20:35)
[2019-04-17] MEDS: HYDROcodone-ACET 5/325MG TAB PO PRN (20:35)
[2019-04-17 21:16] VITALS: BP 120/76
[2019-04-18 05:21] VITALS: BP 107/68
[2019-04-18 06:24] LABS: INR 1.25 (0.9-1.15); Partial Thromboplastin Time 38.9 sec (23.64-32.05)
--- NOTE | 2019-04-18 07:45 | NUR ---
PT AWAKE, ALERT, ORIENTEDx4. COOPERATIVE OF CARE. EFFORTLESS BREATHING ON ROOM AIR. PT EDUCATED ON COAGULATION LAB VALUES AND DISEASE PROCESS. PT VERBALIZES UNDERSTANDING. PT DENIES PAIN AT MOMENT. RLE WITH NON-PITTING EDEMA, WARM TO TOUCH. BED LOCKED AND IN LOWEST POSITION, CALL LIGHT WITHIN REACH. WILL CONTINUE TO MONITOR.
[2019-04-18 09:00] VITALS: BP 125/68
[2019-04-18] MEDS: POTASSIUM CHL 20 Meq TABLET PO SCH (10:04)
[2019-04-18] MEDS: PANTOPRAZOLE 40 MG TAB PO SCH (10:05)
[2019-04-18] MEDS: FAMOTIDINE 20 MG TAB PO SCH (10:05)
[2019-04-18] MEDS: FUROSEMIDE 20 MG TAB PO SCH (10:05)
[2019-04-18] MEDS: LISINOPRIL 20 MG TAB PO SCH (10:06)
[2019-04-18] MEDS: ENOXAPARIN SOD 120 MG/0.8 ML SYRINGE SC SCH ×2 (10:06→21:40)
--- NOTE | 2019-04-18 12:30 | NUR ---
DR. AMO IN TO EVALUATE PT. PT IN AGREEMENT WITH PLAN OF CARE.
[2019-04-18 13:00] VITALS: BP 145/59
[2019-04-18 17:00] VITALS: BP 118/63
[2019-04-18] MEDS ORDERED: WARFARIN SODIUM 10 MG TAB PO ONE (17:00)
--- NOTE | 2019-04-18 20:00 | NUR ---
OPENING NOTE RECEIVED REPORT FROM DAYSHIFT RN. ASSUMING ROLE OF CARE OF PATIENT AT THIS TIME. PATIENT SHOWING NO SIGN OF DISTRESS, SHORTNESS OF BREATH, AND PATIENT DENIES ANY PAIN AT THIS TIME. PATIENT EDUCATED ON PLAN OF CARE FOR THE NIGHT AND PATIENT VERBALIZE UNDERSTANDING. BED LOWERED, CALL LIGHT WITHIN REACH AND PATIENT WILL BE ROUNDED ON EVERY HOUR AND NEEDED.
[2019-04-18 23:59] VITALS: BP 116/80
[2019-04-19 05:10] VITALS: BP 115/61
[2019-04-19 06:13] LABS: Basophils # (auto) 0 uL; Basophils % (auto) 0.5 % (0.0-2.0); Eosinophils # (auto) 0.2 uL; Eosinophils % (auto) 4.3 % (0.0-7.0); Hematocrit 40.9 % (41.0-53.0); Hemoglobin 13.3 g/dL (13.5-17.5); Lymphocytes # (auto) 1.3 uL; Lymphocytes % (auto) 25.1 % (10.0-50.0); Mean Corpuscular Hemoglobin 27.9 pg (28.0-32.0); Mean Corpuscular Hgb Conc. 32.4 g/dL (32.0-36.0); Mean Corpuscular Volume 86.1 fL (80.0-100.0); Monocytes # (auto) 0.5 uL; Monocytes % (auto) 9.5 % (0.0-12.0); Neutrophils # (auto) 3.2 uL; Neutrophils % (auto) 60.6 % (37.0-80.0); Platelet Count (auto) 228 10^3/uL (140-450); Red Blood Cells 4.76 10^6/uL (4.5-5.90); Red Cell Distribution Width 14.9 % (11.8-14.3); White Blood Cell 5.2 10^3/uL (4.4-10.8)
[2019-04-19 06:29] LABS: INR 1.75 (0.9-1.15); Partial Thromboplastin Time 50.1 sec (23.64-32.05)
[2019-04-19 06:34] LABS: BUN/Creatinine Ratio 12.5; Calcium 8.8 mg/dL (8.5-10.1); Potassium 4.3 mmol/L (3.5-5.1)
--- NOTE | 2019-04-19 07:30 | NUR ---
PT AWAKE, ALERT, ORIENTEDx4 COOPERATIVE OF CARE, EFFORTLESS BREATHING ON ROOM AIR. PT REPORTS HAVING WALKED TO RESTROOM FOR BM EARLIER THIS MORNING AND THAT HE FELT THE SAME SHARP PAIN TO THE FRONTAL RIGHT THIGH UPON ADMISSION. AREA IS NON TENDER, NORMAL BODY TEMPERATURE TO LOCALIZED AREA UPON TOUCH. PT ON ANTICOAGULATION THERAPY, AND PT VERBALIZES UNDERSTANDING FOR MINIMIZING MOVEMENT TO RLE. RLE TENDER TO TOUCH, UNCHANGED, WARM. BED LOCKED AND IN LOWEST POSITION, CALL LIGHT WITHIN REACH. WILL CONTINUE TO MONITOR.
[2019-04-19 09:00] VITALS: BP 125/70
[2019-04-19] MEDS: ENOXAPARIN SOD 120 MG/0.8 ML SYRINGE SC SCH ×2 (10:16→21:38)
[2019-04-19] MEDS: FAMOTIDINE 20 MG TAB PO SCH (10:16)
[2019-04-19] MEDS: POTASSIUM CHL 20 Meq TABLET PO SCH (10:16)
[2019-04-19] MEDS: LISINOPRIL 20 MG TAB PO SCH (10:16)
[2019-04-19] MEDS: PANTOPRAZOLE 40 MG TAB PO SCH (10:17)
[2019-04-19] MEDS: FUROSEMIDE 20 MG TAB PO SCH (10:17)
--- NOTE | 2019-04-19 11:15 | NUR ---
DR. MAO IN TO SEE PT. PLAN OF CARE IN DISCUSSION, PT IN AGREEMENT WITH PLAN. PT DENIES HAVING SHARP PAIN FROM EARLIER THIS MORNING AND MD MADE AWARE OF INCIDENCE.
[2019-04-19 13:00] VITALS: BP 125/69
[2019-04-19 17:00] VITALS: BP 119/63
[2019-04-19] MEDS ORDERED: WARFARIN SODIUM 5 MG TAB PO ONE (17:00)
--- NOTE | 2019-04-19 17:24 | NUR ---
PT IN LOW FOWLERS, DENIES DISCOMFORT, PAIN AT MOMENT. EFFORTLESS BREATHING ON ROOM AIR. BED LOCKED AND IN LOWEST POSITION, CALL LIGHT WITHIN REACH.
--- NOTE | 2019-04-19 19:25 | NUR ---
RECEIVED PATIENT, AWAKE, ALERT, ORIENTED X4. NO S/S OF RESPIRATORY DISTRESS. ORIENTED ON PLAN OF CARE. BED IS LOCKED AND IN LOWEST POSITION, SIDE RAILS UP X2, CALL LIGHT WITHIN REACH. WILL CONTINUE TO MONITOR.
[2019-04-19 21:38] VITALS: BP 111/63
[2019-04-20 04:56] VITALS: BP 118/79
[2019-04-20 06:31] LABS: Basophils # (auto) 0 uL; Basophils % (auto) 0.7 % (0.0-2.0); Eosinophils # (auto) 0.2 uL; Eosinophils % (auto) 4.9 % (0.0-7.0); Hematocrit 42.4 % (41.0-53.0); Hemoglobin 13.7 g/dL (13.5-17.5); Lymphocytes # (auto) 1.5 uL; Lymphocytes % (auto) 33.3 % (10.0-50.0); Mean Corpuscular Hemoglobin 27.6 pg (28.0-32.0); Mean Corpuscular Hgb Conc. 32.3 g/dL (32.0-36.0); Mean Corpuscular Volume 85.4 fL (80.0-100.0); Monocytes # (auto) 0.4 uL; Monocytes % (auto) 9.3 % (0.0-12.0); Neutrophils # (auto) 2.3 uL; Neutrophils % (auto) 51.8 % (37.0-80.0); Platelet Count (auto) 230 10^3/uL (140-450); Red Blood Cells 4.97 10^6/uL (4.5-5.90); Red Cell Distribution Width 14.8 % (11.8-14.3); White Blood Cell 4.5 10^3/uL (4.4-10.8)
[2019-04-20 06:44] LABS: INR 1.85 (0.9-1.15)
[2019-04-20 06:47] LABS: BUN/Creatinine Ratio 15.4; Calcium 9.2 mg/dL (8.5-10.1); Potassium 4.6 mmol/L (3.5-5.1)
--- NOTE | 2019-04-20 07:05 | NUR ---
CARE ENDORSED TO AM SHIFT RN
[2019-04-20 08:00] VITALS: BP 130/79
[2019-04-20 09:00] VITALS: BP 130/79
[2019-04-20] MEDS: POTASSIUM CHL 20 Meq TABLET PO SCH (09:34)
[2019-04-20] MEDS: FUROSEMIDE 20 MG TAB PO SCH (09:34)
[2019-04-20] MEDS: PANTOPRAZOLE 40 MG TAB PO SCH (09:35)
[2019-04-20] MEDS: FAMOTIDINE 20 MG TAB PO SCH (09:35)
[2019-04-20] MEDS: LISINOPRIL 20 MG TAB PO SCH (09:35)
[2019-04-20] MEDS: ENOXAPARIN SOD 120 MG/0.8 ML SYRINGE SC SCH ×2 (09:36→21:50)
[2019-04-20 13:00] VITALS: BP 116/78
[2019-04-20] MEDS: HYDROcodone-ACET 5/325MG TAB PO PRN (13:11)
--- NOTE | 2019-04-20 14:26 | NUR ---
Nutrition Follow-up Notes Wt.: 113.8 kg as of yesterday. Pt's asleep, no immediate family member at bedside on oxygen via nasal cannula, asleep, no immediate family member at bedside during rounds this morning. Pt's no signs of distress noted earlier, currently on diet with adequate PO intake aeb 90% ave. consumed meals (x6) in last 2.5 days. Est. Needs: 1700 kcal to 2250 kcal (15-20 kcal/kgBW), 70 gms to 84 gms pro (1.0-1.2 gms/kgBW). Will continue to monitor pertinent labs and reassess nutrient need prn Labs: Pertinent labs wnl as of 04/20/19 Skin: Mark scale 22, low risk, skin intact per brand advisor. GI: Pt had 1 BM 04/14/19 per brand advisor. PES: Altered nutrition related lab values r/t current/chronic medical condition aeb hyperglycemia Obesity r/t food intake more than body requirement aeb 161% IBW, BMI 37.9 kg/m2 and increased body adiposity Will continue to monitor PO intake, skin status, pertinent labs and weight trend. F/u in 3 to 5 days. Rec.: 1.) Consider Consistent Standard Carb: 60 gms/meal, Cardiac: 2 gms Na, Low Chol,Low Fat diet. 2.) Continue close supervision with meals 3.) Refer to CDE/RD for further nutrition education and weight monitoring upon discharged. 4.) Continue current plan of care.
[2019-04-20 16:43] VITALS: BP 118/87
[2019-04-20] MEDS ORDERED: WARFARIN SODIUM 2.5 MG TAB PO ONE (17:00)
[2019-04-20 22:00] VITALS: BP 109/61
[2019-04-21 04:53] LABS: INR 1.91 (0.9-1.15)
--- NOTE | 2019-04-21 07:12 | NUR ---
CARE ENDORSED TO AM SHIFT RN
[2019-04-21 08:00] VITALS: BP 107/67
[2019-04-21 08:19] VITALS: BP 107/67
[2019-04-21] MEDS: LISINOPRIL 20 MG TAB PO SCH (10:00)
[2019-04-21] MEDS: FAMOTIDINE 20 MG TAB PO SCH (10:01)
[2019-04-21] MEDS: PANTOPRAZOLE 40 MG TAB PO SCH (10:01)
[2019-04-21] MEDS: FUROSEMIDE 20 MG TAB PO SCH (10:02)
[2019-04-21] MEDS: POTASSIUM CHL 20 Meq TABLET PO SCH (10:03)
[2019-04-21] MEDS: ENOXAPARIN SOD 120 MG/0.8 ML SYRINGE SC SCH (10:04)
[2019-04-21] MEDS: HYDROcodone-ACET 5/325MG TAB PO PRN (10:11)
[2019-04-21 12:38] VITALS: BP 148/85
[2019-04-21 13:11] VITALS: BP 148/85
--- NOTE | 2019-04-21 15:24 | NUR ---
assessment No post discharge needs identified. Addendum: 04/22/19 at 1525 by Brenda TRAN Amended: Links added.
[2019-04-21] MEDS ORDERED: WARF2.5T PO (15:37)
[2019-04-21] MEDS ORDERED: METF-370 PO (15:37)
[2019-04-21 16:37] VITALS: BP 139/92
[2019-04-21] MEDS ORDERED: WARFARIN SODIUM 2.5 MG TAB PO ONE (17:00)
--- NOTE | 2019-04-21 17:04 | NUR ---
PATIENT DISCHARGED HOME. ALL IV ACCESS DISCONTINUED. NO TELEMETRY. ALL DISCHAGE INSTRUCTIONS GIVEN. ALL DISCHARGE PAPERWORK SIGNED.
== END 2019-04-21 17:15 | disposition home or self-care (01) | DRG 197 ==
LOC: ER 08:19 → TELE 08:20 → TELE-WESTW 12:44 → WEST WING 04-20 09:04
PROVIDERS: ADMIT Nurse Practitioner Acute Care; ATTEND Internal Medicine
DX: I82.401 Acute embolism and thrombosis of unspecified deep veins of right lower extremity (principal); N17.0 Acute kidney failure with tubular necrosis; I13.0 Hypertensive heart and chronic kidney disease with heart failure and stage 1 through stage 4 chronic kidney disease, or unspecified chronic kidney disease; I50.32 Chronic diastolic (congestive) heart failure; E11.22 Type 2 diabetes mellitus with diabetic chronic kidney disease; E66.01 Morbid (severe) obesity due to excess calories; D64.9 Anemia, unspecified; F12.90 Cannabis use, unspecified, uncomplicated; I25.10 Atherosclerotic heart disease of native coronary artery without angina pectoris; K70.30 Alcoholic cirrhosis of liver without ascites; R79.1 Abnormal coagulation profile; K80.20 Calculus of gallbladder without cholecystitis without obstruction; N18.9 Chronic kidney disease, unspecified; M79.89 Other specified soft tissue disorders; Z79.84 Long term (current) use of oral hypoglycemic drugs; Z86.711 Personal history of pulmonary embolism; Z86.718 Personal history of other venous thrombosis and embolism; Z82.49 Family history of ischemic heart disease and other diseases of the circulatory system; Z79.01 Long term (current) use of anticoagulants; Z79.899 Other long term (current) drug therapy; Z91.14 Patient's other noncompliance with medication regimen; Z68.37 Body mass index [BMI] 37.0-37.9, adult
CPT/HCPCS: 36415; 71046; 71275; 80048; 80053; 80307; 81001; 82947; 82962; 83036; 84443; 85025; 85610; 85730; 93005; 93925; 93971; 94761; 96372; G0378

== ENCOUNTER 2019-04-27 11:44 | Emergency (ER) | payer MEDICAID ==
[~2019-04-27] VITALS: Ht 172.7 cm; Wt 108.9 kg
[~2019-04-27 11:44] MED LIST changes: +METF-370 PO; -METF-371 PO; +WARF2.5T PO; -WARF6TAB21 PO
[2019-04-27] MEDS ORDERED: HYDROcodone-ACET 10/325MG TAB PO ONE (12:00)
[2019-04-27 15:18] LABS: INR 3.07 (0.9-1.15); Partial Thromboplastin Time 47.7 sec (23.64-32.05)
[2019-04-27 17:35] VITALS: BP 149/92
== END 2019-04-27 17:41 | disposition home or self-care (01) ==
LOC: ER 11:44
DX: I82.491 Acute embolism and thrombosis of other specified deep vein of right lower extremity (principal); I11.0 Hypertensive heart disease with heart failure; I50.9 Heart failure, unspecified; E11.9 Type 2 diabetes mellitus without complications; F12.90 Cannabis use, unspecified, uncomplicated; E66.9 Obesity, unspecified; Z68.36 Body mass index [BMI] 36.0-36.9, adult; Z79.01 Long term (current) use of anticoagulants
CPT/HCPCS: 36415; 85610; 85730

== ENCOUNTER → 2019-05-27 | Outpatient (CLI) | payer MEDICAID ==
[2019-05-27 15:30] LABS: Basophils # (auto) 0 uL; Basophils % (auto) 0.6 % (0.0-2.0); Eosinophils # (auto) 0.2 uL; Eosinophils % (auto) 3.8 % (0.0-7.0); Hematocrit 39.2 % (41.0-53.0); Hemoglobin 12.8 g/dL (13.5-17.5); Lymphocytes # (auto) 1.7 uL; Lymphocytes % (auto) 32.4 % (10.0-50.0); Mean Corpuscular Hgb Conc. 32.8 g/dL (32.0-36.0); Mean Corpuscular Volume 85.3 fL (80.0-100.0); Monocytes # (auto) 0.4 uL; Monocytes % (auto) 7.1 % (0.0-12.0); Neutrophils % (auto) 56.1 % (37.0-80.0); Platelet Count (auto) 205 10^3/uL (140-450); Red Blood Cells 4.59 10^6/uL (4.5-5.90); Red Cell Distribution Width 15.4 % (11.8-14.3); White Blood Cell 5.4 10^3/uL (4.4-10.8)
[2019-05-27 15:55] LABS: INR 1.82 (0.9-1.15); Partial Thromboplastin Time 38.9 sec (23.64-32.05)
[2019-05-27 16:14] LABS: Urine Bacteria NONE SEEN /hpf (None Seen); Urine Blood Negative /uL (Negative); Urine Hyaline Cast FEW /lpf (0 - 2); Urine Mucus FEW (None Seen); Urine Specific Gravity 1.011 (1.001-1.035); Urine WBC 1 /hpf (0 - 3)
[2019-05-27 16:36] LABS: Folate (Folic Acid) 8.63 ng/mL (5.38-24); Prostate Specific Antigen 0.37 ng/mL (0.0-4.0)
[2019-05-27 17:11] LABS: Alcohol, Urine < 3.0 mg/dL (0-5); Amphetamine Screen, Urine NEGATIVE (NEGATIVE); Barbiturate Scree,Urine NEGATIVE (NEGATIVE); Benzodiazephine Screen, Urine NEGATIVE (NEGATIVE); Cannabinoid Screen, Urine NEGATIVE (NEGATIVE); Cocaine Screen, Urine NEGATIVE (NEGATIVE); Opiate Scree,Urine NEGATIVE (NEGATIVE); Phencyclidine Screen, Urine NEGATIVE (NEGATIVE)
[2019-05-27 18:06] LABS: Potassium 3.5 mmol/L (3.5-5.1)
[2019-05-27 18:08] LABS: BUN/Creatinine Ratio 11.3
[2019-05-27 18:09] LABS: Bilirubin, Total 0.6 mg/dL (0.2-1.0); Calcium 8.7 mg/dL (8.5-10.1); Total Protein 8.4 g/dL (6.4-8.2)
[2019-05-27 18:10] LABS: Albumin 4.1 g/dL (3.4-5.0)
[2019-05-28 09:52] LABS: Hepatitis B Surface Antibody Negative
[2019-05-28 10:25] LABS: Hepatitis A Total Antibody Positive
[2019-05-28 11:12] LABS: Hepatitis B Core Total AB Negative; Hepatitis B Surface Antigen Negative (Negative)
[2019-05-28 11:19] LABS: Hepatitis C Antibody Positive (Negative)
== END | disposition home or self-care (01) ==
LOC: LAB 15:08
PROVIDERS: ATTEND Internal Medicine
DX: E11.22 Type 2 diabetes mellitus with diabetic chronic kidney disease (principal); I13.0 Hypertensive heart and chronic kidney disease with heart failure and stage 1 through stage 4 chronic kidney disease, or unspecified chronic kidney disease; I50.9 Heart failure, unspecified; N18.9 Chronic kidney disease, unspecified
CPT/HCPCS: 36415; 80053; 80061; 80307; 81001; 82105; 82607; 82746; 83036; 84153; 85025; 85610; 85730; 86704; 86706; 86708; 86803; 87340